=== PATIENT | male | born 1990 | race Caucasian/White ===

== ENCOUNTER 2019-12-04 09:36 | Day surgery (SDC) | payer BC ==
[~2019-12-04] VITALS: Ht 188 cm; Wt 90.2 kg
[~2019-12-04 09:36] MED LIST: NORCO 325 MG-51 TAB PO
[2019-12-04 10:08] VITALS: BP 126/94; PULSE 95; TEMP 99
[2019-12-04] MEDS ORDERED: PAMELOR 10MG10 MG PO (10:29)
[2019-12-04 11:40] VITALS: BP 126/88; PULSE 77; TEMP 98
[2019-12-04 11:55] VITALS: BP 119/85; PULSE 94
[2019-12-04 12:10] VITALS: BP 139/97; PULSE 75
[2019-12-04 12:29] VITALS: BP 128/88; PULSE 85
== END 2019-12-04 12:54 | disposition home or self-care (01) ==
LOC: SDCO 09:36
DX: K21.0 Gastro-esophageal reflux disease with esophagitis (principal); K59.00 Constipation, unspecified; K58.0 Irritable bowel syndrome with diarrhea; Z88.8 Allergy status to other drugs, medicaments and biological substances; F17.210 Nicotine dependence, cigarettes, uncomplicated; F41.9 Anxiety disorder, unspecified; F32.9 Major depressive disorder, single episode, unspecified
CPT/HCPCS: J2250; J2704; J7120